=== PATIENT | male | born 1995 | race Two or more races ===

== ENCOUNTER 2024-01-21 02:17 | Emergency (ER) | payer MEDICAID ==
[~2024-01-21] VITALS: Ht 160 cm; Wt 84.0 kg
[2024-01-21 02:23] VITALS: TEMP 98.4
[2024-01-21] MEDS ORDERED: ASPI-1 PO (02:28)
[2024-01-21 03:43] LABS: COVID AG,FIA SOURCE NASAL SWAB
[2024-01-21 04:07] LABS: INFLUENZA TYPE A NEGATIVE FOR TYPE A (NEGATIVE); INFLUENZA TYPE B NEGATIVE FOR TYPE B (NEGATIVE); SARS-COV2 (COVID) ANTIGEN,FIA Negative (Negative)
[2024-01-21] MEDS: LIDOCAINE 2% VISCOUS 15 ML SOLUTION UDCUP PO ONE (05:14)
[2024-01-21 05:21] VITALS: BP 120/72; PULSE 99; RESP 18
== END 2024-01-21 05:23 | disposition home or self-care (01) ==
LOC: EMS 02:19
DX: K12.0 Recurrent oral aphthae (principal); B34.9 Viral infection, unspecified; Z20.822 Contact with and (suspected) exposure to COVID-19
CPT/HCPCS: 87804; 99283